=== PATIENT | male | born 1980 | race Caucasian/White ===

== ENCOUNTER 2017-09-29 01:59 | Observation (INO) | payer OTHER ==
--- NOTE | 2017-09-26 10:24 | Pharmacy Note ---
Pharmacy Note Date Provider Notified: Sep 26, 2017 Time Provider Notified: 10:00 Note: Pre-op order for Ancef 2 gm but patient is [address] Gayle and left message with nurse that current recommendations for patients over 250 lbs is 3 gms of Ancef pre-op. LEBRON LANDAVERDE Sep 26, 2017 10:24
[2017-09-29] VITALS (15 sets, daily range): BP systolic 141–187; BP diastolic 81–122
[~2017-09-29] VITALS: Ht 190.5 cm; Wt 174.6 kg
[~2017-09-29 01:59] MED LIST: ALLO-119 PO; AZEL137S NS; CETI-176 PO; ERG400 FT; IBUP200C71 PO; LEVO-3 PO; METF-421 PO; MONT10TA PO; NAPR220C12 PO; OMEG10007; UBID30CA; VALS1TAB67 PO
[2017-09-29] MEDS ORDERED: MIDAZOLAM 2 MG/2 ML VIAL IVP PRN (06:25)
[2017-09-29] MEDS ORDERED: LIDO/EPI 1% MDV 1:100,000 20ML INFIL ONE (06:51)
[2017-09-29] MEDS ORDERED: BACITRACIN OINT 15 GM TUBE TP ONE (06:51)
[2017-09-29] MEDS ORDERED: MUPIROCIN 2% OINT 22 GM TUBE TP ONE (06:51)
[2017-09-29] MEDS ORDERED: OXYMETAZOLINE SPRAY 15 ML BTL ONE (06:55)
[2017-09-29] MEDS ORDERED: LIDOCAINE/SOD BICARB 8.4% SYR ID ONE (08:25)
[2017-09-29] MEDS ORDERED: NORMOSOL R SOLN(*) 1000 ML BAG 1,000 ML IV PRN (08:25)
[2017-09-29] MEDS ORDERED: FAMOTIDINE 20 MG TAB PO ONE (08:25)
[2017-09-29] MEDS ORDERED: ceFAZolin(*) 2GM/D5W 50ML 50 ML IVPB ONE (08:30)
--- NOTE | 2017-09-29 09:04 | EKG ---
FACILITY: [facility] [place] PATIENT NAME: PAGE MINOR : [id number] MR: [id number] V: [id number] EXAM DATE: ORDERING PHYSICIAN: SEKOU ZAVALA TECHNOLOGIST: LORNE Hernández Reason : PRE-OP Blood Pressure : / mmHG Vent. Rate : 080 BPM Atrial Rate : 080 BPM P-R Int : 186 ms QRS Dur : 104 ms QT Int : 394 ms P-R-T Axes : 017 -41 047 degrees QTc Int : 454 ms Normal sinus rhythm Possible Left atrial enlargement Left axis deviation Pulmonary disease pattern Abnormal ECG No previous ECGs available Confirmed by MOLLY DORSEY ([id number]) on 09/29/2017 1:01:27 PM Referred By: YUDITH Confirmed By:MOLLY DORSEY
[2017-09-29] MEDS ORDERED: NS(*) 0.9% 250 ML BAG 250 ML ONE (09:54)
[2017-09-29] MEDS ORDERED: ONDANSETRON 4 MG/2 ML VIAL ONE (10:08)
[2017-09-29] MEDS ORDERED: PROPOFOL EMUL(*) 10MG/ML 20 ML 40 ML ONE (10:08)
[2017-09-29] MEDS ORDERED: DEXAMETHASONE SOD PHOS 10MG/ML ONE (10:08)
[2017-09-29] MEDS ORDERED: ROCURONIUM BROM 10 MG/ML 10 ML ONE (10:08)
[2017-09-29] MEDS ORDERED: SUGAMMADEX SOD 200 MG/2 ML SDV ONE (10:13)
[2017-09-29] MEDS ORDERED: fentaNYL CITR 100 MCG/2 ML AMP ONE ×2 (10:43→11:15)
[2017-09-29] MEDS ORDERED: CEFU500T10 PO (11:32)
[2017-09-29] MEDS ORDERED: HYDR-385 PO (11:33)
[2017-09-29] MEDS ORDERED: APAP/HYDROCODONE 325/5 TAB ONE (12:10)
--- NOTE | 2017-09-29 12:25 | OPERATIVE REPORT 1 ---
EVENT DATE: September 29, 2017 SURGEON: Horacio Gayle MD ANESTHESIOLOGIST: Blayne Meyer MD ANESTHESIA: General endotracheal. PROCEDURE 1. Septoplasty. 2. Submucosal resection of the bilateral inferior turbinates. PREOPERATIVE DIAGNOSES 1. Nasal septal deviation. 2. Bilateral inferior turbinate hypertrophy. POSTOPERATIVE DIAGNOSES 1. Nasal septal deviation. 2. Bilateral inferior turbinate hypertrophy. INDICATIONS Please refer to the preoperative note. DESCRIPTION OF PROCEDURE The patient was positively identified in the preoperative area. He was accompanied there by his . Risks were again explained, including but not limited to bleeding, infection, nasal septal perforation and those associated with anesthesia. The patient acknowledged understanding of those risks. He was then brought back to the operative suite, laid supine on the operative table and anesthesia was administered. Once asleep, the patient was positioned , then prepped and draped in usual sterile fashion. I initially decongested the nose by injecting approximately 10 mL of 1% lidocaine with epinephrine into the bilateral anterior nasal septal mucosa and along the face of the bilateral inferior turbinates. Both nasal cavities were subsequently packed with cottonoids containing Afrin solution. These were subsequently removed. A nasal endoscopy was performed. This was notable for a severe left nasal septal deviation. A [place] incision was made in the left anterior nasal septal mucosa. A subperichondrial flap was elevated. An incision was then made into the anterior nasal septal cartilage approximately 5 mm posterior to the original [place] incision. A contralateral flap was raised. The deviated portion of the patient's nasal septal cartilage and bone were then removed. The [place] incision was then reapproximated with interrupted chromic stitch. I then addressed the inferior turbinates. A stab incision was made at the face of the left inferior turbinate. A caudal elevator was utilized to elevate the mucosa off the underlying bone. A microdebrider was then utilized to perform a submucosal resection. The stab incision was then cauterized with suction Bovie electrocautery. The contralateral inferior turbinate was addressed in a similar fashion. Bilateral nasal septal splints were then placed and secured to the columella with a suture. The patient was then turned to anesthesia for emergence. ESTIMATED BLOOD LOSS 25 mL. COMPLICATIONS No complications. [facility]
[2017-09-29] MEDS ORDERED: hydrALAZINE HCL 20 MG/ML VIAL ONE (13:06)
[2017-09-29] MEDS ORDERED: ONDANSETRON 4 MG ODT TABDP SL PRN (14:25)
--- NOTE | 2017-09-29 15:47 | Gen Surgery H&P BLANK ---
GENERAL SURGERY H&P BLANK Saw patient post operatively in stepdown. Earlier, in PACU, RN noted a chip on one of the patient's teeth. The patient did have a small chip on the corner of his upper right incisor. Subsequently, the nurses asked the patient and his if the chip had been present before today and if his teeth felt any different than they did prior to surgery, per their report, they did feel a little different. So, I met with the patient and his in the stepdown unit , prior to his transfer to the floor. I explained that as a part of my preoperative evaluation I ask every patient if they have any "loose, chipped, or cracked teeth," and that I generally take the patient at his or her word word as the answer. I asked Mr. Gandhi this question, as did the RN, and he didn't note anything. I explained that his intubation was uneventful and straightforward and that I did not think there was anything that happened during the intubation, or post op, that would have accounted for the chip. The patient noted at that point that he really didn't even have a sore throat. He also noted that he has had some fillings in his front teeth. At any rate, on examination, the patient did have a small chip on the medial corner of his upper right incisor. The surface of the chipped part tooth was smooth and even and the corners were rounded, there was no blood or obvious damage to the gums, and the tooth was not tender to touch. In all, it appeared as if the chip had been there for some time. I explained that I wanted the patient to be satisfied with my service and with his care and that if he felt the chip happened during this visit/surgery that I would work with him. Given the uneventful intubation and the aged appearance of the chip, I did ask that if they felt the chip did happen during this visit that they provide some evidence that the tooth wasn't chipped from the time period immediately preceding this surgery. He and his stated that they weren't really sure if the chip was there or not prior to surgery and that they weren't really worried about it. SEKOU ZAVALA MD Sep 29, 2017 15:46
[2017-09-29] MEDS: KETOROLAC 15 MG/ML VIAL IVP SCH (17:29)
[2017-09-29] MEDS: CEFUROXIME AXETIL 250 MG TAB PO SCH (21:21)
[2017-09-30] MEDS: KETOROLAC 15 MG/ML VIAL IVP SCH ×2 (00:18→08:27)
[2017-09-30] MEDS: APAP/HYDROCODONE 325/5 TAB PO PRN ×2 (04:38→05:21)
[2017-09-30 04:39] VITALS: BP 156/92
[2017-09-30] MEDS ORDERED: LEVOTHYROXINE SOD 0.112 MG TAB PO SCH (06:00)
[2017-09-30 07:21] VITALS: BP 142/88
--- NOTE | 2017-09-30 08:02 | Short(Outpt) Discharge Summary ---
Discharge Summary Reason for Hosp/Final Diag: (1) Nasal septal deviation Status: Resolved (2) Nocturnal hypoxia Status: Chronic Hospital Course & Plan: Patient observed overnight after septoplasty. Patient with desaturations into 60s, requiring nocturnal oxygen. Discharged home with nocturnal oxygen and plan for sleep study and pulmonology referral. Departure Discharge to: Home Discharge Instructions Home Meds Reported Medications Hydrocodone Bit/Acetaminophen (HYDROCODON-ACETAMINOPHEN 5-325) 1 Each Tablet, 1- 2 EACH PO Q4H Y for PAIN, #30 TAB 09/29/17 Cefuroxime Axetil (CEFUROXIME) 500 Mg Tablet, 500 MG PO BID for 7 Days, #14 TAB 09/29/17 Vitamin D (VITAMIN D) Unknown Strength Tab, FT, TAB 08/07/17 [place]-3/Dha/Epa/Fish Oil (Fish Oil 1,000 mg Softgel) Unknown Strength Capsule 08/07/17 Ubidecarenone (Coenzyme Q-10) Unknown Strength Capsule 08/07/17 Ibuprofen (IBUPROFEN) Unknown Strength Capsule, PO Q6H, CAPSULE 08/07/17 Naproxen Sodium (ALEVE) Unknown Strength Capsule, PO TID Y for PAIN, CAPSULE 08/07/17 Cetirizine Hcl (ZYRTEC) 10 Mg Tablet, 10 MG PO PRN, TAB 07/14/17 Levothyroxine Sodium (LEVOTHYROXINE SODIUM) 100 Mcg Tablet, 224 MCG PO QDAY, TAB 07/14/17 Montelukast Sodium (SINGULAIR) 10 Mg Tablet, 1 TAB PO QDAY, TAB 07/14/17 Allopurinol (ZYLOPRIM) 300 Mg Tablet, 300 MG PO QDAY, TAB 07/14/17 Metformin Hcl (METFORMIN HCL) 1,000 Mg Tablet, 1 TAB PO QDAY, TAB 07/14/17 Valsartan/Hydrochlorothiazide (DIOVAN HCT 160-12.5 MG TAB) 1 Each Tablet, 1 EACH PO QDAY 07/14/17 Diet: Regular Activity: No Heavy Lifting, No Exertion Special Instructions: YOUR FOLLOW UP APPOINTMENT IS OCTOBER 06 (NEXT FRIDAY) AT 3:30 PM. PLEASE ARRIVE JUST A FEW MINUTES EARLY. YOU MAY WANT TO SLEEP WITH THE HEAD OF YOUR BED ELEVATED FOR THE NEXT FEW DAYS. YUDITH MASCORRO,RUPERTO Franco MD Sep 30, 2017 08:02
[2017-09-30] MEDS ORDERED: KET10 PO (08:04)
[2017-09-30] MEDS: CEFUROXIME AXETIL 250 MG TAB PO SCH (08:27)
[2017-09-30] MEDS ORDERED: VALSARTAN 80 MG TAB PO SCH (09:00)
[2017-09-30] MEDS ORDERED: HYDROCHLOROTHIAZIDE 25 MG TAB PO SCH (09:00)
[2017-09-30] MEDS ORDERED: metFORMIN HCL 500 MG TAB PO SCH (09:00)
[2017-09-30] MEDS ORDERED: MONTELUKAST SODIUM 10 MG TAB PO SCH (09:00)
== END 2017-09-30 11:33 | disposition home or self-care (01) ==
LOC: OR 01:59 → MED 15:00
PROVIDERS: ADMIT Otolaryngology; ATTEND Otolaryngology
DX: J34.2 Deviated nasal septum (principal); J34.3 Hypertrophy of nasal turbinates; I10 Essential (primary) hypertension; E11.9 Type 2 diabetes mellitus without complications
CPT/HCPCS: 30140; 30520; 36416; 82948; 93005; G0378; J1100; J1885; J2250; J2405; J2704; J3010; J7050; J0690

== ENCOUNTER 2018-11-27 18:53 | Emergency (ER) | payer OTHER ==
[~2018-11-27 18:53] MED LIST changes: +CEFU500T10 PO; +HYDR-385 PO; +IBUP-136 PO; -IBUP200C71 PO; +KET10 PO; -METF-421 PO; +METF-452 PO
[2018-11-27 18:58] VITALS: BP 180/120
[2018-11-27] MEDS ORDERED: DULO60CA56 PO (18:58)
[2018-11-27] MEDS ORDERED: OMEG-23 PO (18:58)
--- NOTE | 2018-11-27 19:03 | ER Report ---
History and Physical Time Seen By MD: 19:00 Hx. of Stated Complaint: high blood pressure (200/130) since last night HPI/ROS CHIEF COMPLAINT: High blood pressure HISTORY OF PRESENT ILLNESS: 38-year-old male patient presents to emergency room with complaint of high blood pressure. Patient states that he's been having high blood pressure for the past 2 days. He states that he is been keeping close tabs on it. He states that this afternoon he did take a half dose of his Diovan/hydrochlorothiazide. He states that he did not have any improvement with his blood pressure at that time secondary to come in for evaluation. Patient states that he does not have any headache, shortness of breath, chest pain, dysuria, hematuria. Patient states he feels fine. He states he is recently been using a Pap and states that he feels like he has much more energy during the day. He denies any nausea, vomiting or diarrhea. Patient did have a nosebleed l ast night which took a while to stop the bleeding. He states that the that he's been feeling fine. REVIEW OF SYSTEMS: Respiratory: No cough, no dyspnea. Cardiovascular: No chest pain, no palpitations. Gastrointestinal: No vomiting, no abdominal pain. Musculoskeletal: No back pain. Allergies: Coded Allergies: adhesive tape (Verified Allergy, Intermediate, BLISTERING, 11/27/18) grass pollen (Unverified Allergy, Unknown, 11/27/18) tree and shrub pollen (Unverified Allergy, Unknown, 11/27/18) Home Meds Active Scripts Clonidine Hcl (CLONIDINE HCL) 0.1 Mg Tablet, 0.1 MG PO BID PRN for HYPERTENSION, #15 TAB Take 1 tab as needed for blood pressure greater than 155/95 Prov:ABDELRAHMAN FLORES [employer] INST[employer]ER 11/27/18 Reported Medications [place]-3 Fatty Acids/Fish Oil (FISH OIL 1,000 MG SOFTGEL) 1 Each Capsule, 1 EACH PO, CAPSULE 11/27/18 Duloxetine Hcl (CYMBALTA) 60 Mg Capsule.dr, 60 MG PO QDAY, #5 CAP 11/27/18 Vitamin D (VITAMIN D) Unknown Strength Tab, FT, TAB 08/07/17 Ubidecarenone (Coenzyme Q-10) Unknown Strength Capsule 08/07/17 Naproxen Sodium (ALEVE) Unknown Strength Capsule, PO TID PRN for PAIN, CAPSULE 08/07/17 Cetirizine Hcl (ZYRTEC) 10 Mg Tablet, 10 MG PO PRN, TAB 07/14/17 Levothyroxine Sodium (LEVOTHYROXINE SODIUM) 100 Mcg Tablet, 224 MCG PO QDAY, TAB 07/14/17 Montelukast Sodium (SINGULAIR) 10 Mg Tablet, 1 TAB PO QDAY, TAB 07/14/17 Allopurinol (ZYLOPRIM) 300 Mg Tablet, 300 MG PO QDAY, TAB 07/14/17 Metformin Hcl (METFORMIN HCL) 1,000 Mg Tablet, 1 TAB PO QDAY, TAB 07/14/17 Valsartan/Hydrochlorothiazide (DIOVAN HCT 160-12.5 MG TAB) 1 Each Tablet, 1 EACH PO QDAY 07/14/17 Past Medical/Surgical History Patient has a past medical history of hypertension, sleep apnea, diabetes, hypothyroidism. Patient has surgical history of tonsillectomy. Reviewed Nurses Notes: Yes Hx Smoking: No Smoking Status: Never Smoker Exposure to Second Hand Smoke?: No Hx Substance Use Disorder: No Hx Alcohol Use: No Constitutional Vital Sign - Last 24 Hours 11/27/18 11/27/18 18:58 19:03 Temp 98.5 Pulse 84 Resp 16 B/P (MAP) 180/120 Pulse Ox 93 O2 Delivery Room Air O2 Flow Rate 1.0 Physical Exam General Appearance: The patient is alert, has no immediate need for airway protection and no current signs of toxicity. Respiratory: Chest is non tender, lungs are clear to auscultation. Cardiac: regular rate and rhythm Gastrointestinal: Abdomen is soft and non tender, no masses, bowel sounds normal. Musculoskeletal: Neck: Neck is supple and non tender. Extremities have full range of motion and are non tender. Skin: No rashes or lesions. DIFFERENTIAL DIAGNOSIS: After history and physical exam differential diagnosis was considered for hypertensive urgency, emergency Medical Decision Making ED Course/Re-evaluation ED Course Patient was admitted in exam room, history and physical were obtained. Differential diagnoses were considered. On examination lungs are clear, heart is regular, abdomen soft nontender. On examination lungs are clear, heart is regular, abdomen is soft and non-tender. Patient has no complaints this time other than his blood pressure being high. It has improved while he is sitting here, getting down to 144/112. He did take half a dose of his Diovan/hydrochlorothiazide. We will go ahead and discharge him home at this time. We will have him take 2 of the hydrochlorothiazide Diovan tablets, taking the second half of the dose he took this afternoon this evening. He is to in crease fluid intake, get plenty of rest. He is to take clonidine, 0.1 mg as needed for blood pressure greater than 155/95. Patient and verbalized understanding and agreement with plan. Decision to Disposition Date: Nov 27, 2018 Decision to Disposition Time: 19:29 Depart Departure Latest Vital Signs Vital Signs Date Time Temp Pulse Resp B/P (MAP) Pulse Ox O2 Delivery O2 Flow Rate FiO2 11/27/18 19:03 1.0 11/27/18 18:58 98.5 84 16 180/120 93 Room Air Impression: Primary Impression: Hypertension Condition: Improved Disposition: HOME OR SELF-CARE Referrals: ALEXIS CASTANEDA (PCP) New Scripts Clonidine Hcl (CLONIDINE HCL) 0.1 Mg Tablet 0.1 MG PO BID PRN for HYPERTENSION, #15 TAB Take 1 tab as needed for blood pressure greater than 155/95 Prov: ABDELRAHMAN FLORES 11/27/18 Patient Instructions: Hypertension (ED) Additional Instructions: Increase fluid intake. Take the Diavan/HCTZ 2 tabs daily until you see your primary care provider. Return to the ER if condition worsens, headache, chest pain, Shortness of breath or blood in your urine. Get plenty of rest. Continue with the CPAP. Continue with normal activities. Problem Qualifiers Primary Impression: Hypertension Hypertension type: essential hypertension Qualified Codes: I10 - Essential (primary) hypertension ABDELRAHMAN FLORES Nov 27, 2018 19:03
[2018-11-27] MEDS ORDERED: CLON-327 PO (19:34)
== END 2018-11-27 19:39 | disposition home or self-care (01) ==
LOC: ER 19:09
DX: I10 Essential (primary) hypertension (principal)
CPT/HCPCS: 99281